=== PATIENT | female | born 1960 | race Caucasian/White ===

== ENCOUNTER 2020-07-05 16:39 | Emergency (ER) | payer BC ==
[~2020-07-05] VITALS: Ht 152.4 cm; Wt 77.3 kg
[2020-07-05 16:49] VITALS: Ht 152.4 cm; Wt 77.3 kg
[2020-07-05] MEDS ORDERED: PRINIVIL10 MG PO (16:50)
[2020-07-05] MEDS ORDERED: NORVASC2.5 MG PO (16:50)
[2020-07-05] MEDS ORDERED: TIROSINT75 MCG PO (16:50)
[2020-07-05] MEDS ORDERED: IBANDRONATE SO150 MG PO (16:51)
[2020-07-05] MEDS ORDERED: CALCIUM 500 +1 EAC3 PO (16:51)
[2020-07-05] MEDS ORDERED: MOBIC7.5 MG PO (16:51)
[2020-07-05 17:30] LABS: BASOPHILS 0.3 % (0-2); EOSINOPHILS 1.8 % (0-7); HEMATOCRIT 47.1 % (36.0-48.0); HEMOGLOBIN 15.7 g/dL (12-16); IMMATURE GRANULOCYTES 0.6 % (0-5); MCH 30.7 pg (26.0-34.0); MCHC 33.3 g/dL (31.0-37.0); MCV 92.2 fL (80.0-100.0); MEAN PLATELET VOLUME 10.3 fL (7.4-10.4); MONOCYTES 10.2 % (2-11); NEUTROPHILS 58.1 % (40-80); PLATELET COUNT 232 10x3/uL (130-400); RBC 5.11 10x6/uL (4.00-5.40); RDW 13.1 % (11.5-14.5); WBC 9.6 10x3/uL (4.8-10.8)
[2020-07-05 17:39] LABS: INR 0.91 (0.85-1.17); PROTIME 12.2 SECONDS (11.6-15.0)
[2020-07-05 17:41] LABS: CALC OSMOLALITY 281 mosm/kg (275-300); CALCIUM 9.3 mg/dL (8.5-10.1); CARBON DIOXIDE 23.5 mmol/L (21.0-32.0); CHLORIDE - SERUM 104 mmol/L (98-107); CREATININE - SERUM 0.7 mg/dL (0.6-1.3); GLUCOSE 83 mg/dL (74-106); POTASSIUM - SERUM 3.7 mmol/L (3.5-5.1); SODIUM 142 mmol/L (136-145); UREA NITROGEN 13 mg/dL (7-18); eGFR NON AFRICAN AMERICAN 90 mL/min (90-120)
[2020-07-05 17:59] LABS: ALKALINE PHOSPHATASE 102 U/L (30-120); ALT (SGPT) 35 U/L (10-68); BILIRUBIN - TOTAL 0.24 mg/dL (0.2-1.3); CKMB 0.4 U/L (0.0-3.6); CREATINE KINASE 40 UL (21-215); MAGNESIUM - SERUM 2.3 mg/dL (1.8-2.4); PROTEIN - SERUM 6.9 g/dL (6.4-8.2); TROPONIN-I < 0.017 ng/mL (0.000-0.060)
[2020-07-05] MEDS ORDERED: DICLOFENAC SODI50 MG PO (18:29)
[2020-07-05] MEDS ORDERED: HYDROCODON-ACE1 EAC7 PO (18:29)
[2020-07-05 19:43] VITALS: BP 147/86
== END 2020-07-05 19:43 | disposition home or self-care (01) ==
LOC: D.ER 16:39
PROVIDERS: Emergency Medicine
DX: R07.89 Other chest pain (principal); I10 Essential (primary) hypertension